=== PATIENT | female | born 1945 | race Caucasian/White ===

== ENCOUNTER → 2023-05-11 12:41 | Outpatient (REF) | payer MEDICARE, SELFPAY ==
--- NOTE | 2023-05-11 12:46 | CA_ITS ---
Transthoracic Echocardiogram Patient (Last, First, Middle): Annamaria Contreras, Gender: Female Date of : 1945 Age: 78 Procedure Date: 05/11/2023 Procedure Type: Transthoracic Echocardiogram Location: Field Height: 162.56 cm Weight: 74.84 kg BSA: 1.80 m2 Heart Rate: 84 bpm BP: 138 / 68 mmHg [employer] Assistant: ROMERO Rodgers MD: Thee Archer Gmat Tutor: Yefri Head MD Symptoms: GU Study Quality: Adequate ECG Rhythm: Sinus Conclusions: - 1. Normal measured LV ejection fraction 55-60% with impaired relaxation filling pattern 2. Normal cardiac valvular Doppler 3. Normal RV systolic pressure 4. No gross pericardial effusion Findings Procedure Information The quality of the study was technically difficult. The study quality is limited by patients body habitus. Left Ventricle Normal left ventricular size, thickness, and systolic function. The visually estimated ejection fraction is between 55-60%. Spectral Doppler is indicative of an impaired relaxation filling pattern. E/E prime ratio is between 8 and 15 consistent with indeterminate filling pressures. Peak GLS is -17.2%, borderline low. Right Ventricle Normal right ventricular cavity size and systolic function. Atria The left atrium is normal in size. Interatrial shunt cannot be excluded. The right atrium is normal in size. Aortic Valve Normal aortic valve structure and function. There is no aortic valve stenosis. There is no aortic valve regurgitation. Mitral Valve Normal mitral valve structure and function. There is trace mitral valve regurgitation. There is no mitral valve stenosis. Pulmonic Valve The pulmonic valve is likely normal. There is trace to mild pulmonic valve regurgitation. Tricuspid Valve Normal tricuspid valve structure. There is trace tricuspid valve regurgitation. The right ventricular systolic pressure is normal. The right ventricular systolic pressure is 28 mmHg. Normal right atrial pressure. There is no evidence of pulmonary hypertension. Great Vessels All visible segments of the aorta are normal in size. The pulmonary artery was not well visualized. Venous The inferior vena cava is normal in size and collapses greater than 50% with inspiration. Pericardium/Pleural There is no evidence of pericardial effusion. Prior Study Comparison No prior study available for comparison. Measurements 2D Linear Measurements IVSd: 0.88 0.6-0.9/0.6-1.0 cm LVIDd: 4.58 3.9-5.3/4.2-5.9 cm LVIDd Index: 2.54 2.4-3.2/2.2-3.1 cm/m2 LVIDs: 3.24 2.0-3.6 cm LVPWd: 0.77 0.7-1.1 cm LA Diam: 3.20 2.7-3.8/3.0-4.0 cm LAIDs Index: 1.78 1.5-2.3 cm/m2 LV Mass: 151.20 67-162/88-224 g LV Mass Index: 84.00 43-95/49-115 g/m2 LVOT Diam: 2.10 3.0+(-)1.3 cm 2D Systolic Function EF 4C: 57.80 >55% EF 2C: 54.10 >55% EF BiP: 55.60 >55% Mitral Valve MV Pk E: 0.60 MV PK A: 0.78 MV Decel Time: 199.00 E/A: 0.80 E'Lateral: 6.96 E'Medial: 4.90 E/E' Med: 12.30 E/E' Lat: 8.70 PHT: 58.00 MVA PHT: 3.79 Decel Bremer: 3.03 Aortic Valve AoV Pk Balbir: 1.25 AoV Pk Grad: 6.00 SUSY: 2.66 LVOT LVOT Pk Balbir: 0.95 LVOT Mn Balbir: 0.60 LVOT VTI: 0.20 LVOT Pk Grad: 4.00 LVOT Mn Grad: 2.00 LVOT Diam: 2.10 LVOT Area: 3.46 Diastolic Function MV Pk E: 0.60 MV Pk A: 0.78 E/A: 0.80 E'Medial: 4.90 E/E' Med: 12.30 E' Laterial: 6.96 E/E' Lat: 8.70 Right Ventricle TAPSE (mm): 18.80 TVS' Balbir: 10.60 Tricuspid Valve TR Pk Balbir: 2.48 TR Pk Grad: 25.00 RA Press: 3.00 RVSP: 28.00 Great Vessels Aorta Sinus of Valsalva: 3.00 2.0-3.5 cm Ao Asc: 3.00 2.1-3.4 cm Pulmonary Veins Pulm Vein S/D 1.80 Pulmonary Valve PV Pk Balbir: 0.87 Peak PV Grad: 3.00 Updated in Other Vendor System with Status of Final Yefri Head MD electronically signed on 05/11/2023 3:55:26 PM with status of Final
== END ==
LOC: HO.CARD 12:41
PROVIDERS: Visit Provider Internal Medicine Critical Care Medicine
DX: R06.09 Other forms of dyspnea (principal)
CPT/HCPCS: 93306; 93356

== ENCOUNTER → 2023-05-11 12:46 | Outpatient (BNV) | payer MEDICARE, SELFPAY | PROVIDERS: Visit Provider Internal Medicine Cardiovascular Disease | DX: I37.1 Nonrheumatic pulmonary valve insufficiency (principal) | CPT/HCPCS: 93306 ==